=== PATIENT | male | born 1960 | race Caucasian/White ===

== ENCOUNTER 2024-05-13 11:09 | Emergency (ER) | payer OTHER, SELFPAY ==
[2024-05-13 11:12] VITALS: BP 130/78; PULSE 107; RESP 16; TEMP 36.8; O2SAT 97; BMI 34.5
--- NOTE | 2024-05-13 11:32 | ED_ITS ---
HPI - General Adult General Chief complaint: Unspecified Complaint, Adult Stated complaint: Chemo site tracking on arm Time Seen by Provider: 05/13/24 11:27 Source: patient Mode of arrival: ambulatory Limitations: no limitations History of Present Illness HPI narrative: 63-year-old male coming in today complaining of a rash on his arm. Patient had a recent chemotherapy treatment, it was his 6 and last 1. He had a chemo site on the anterior right arm. And he has noticed that in the last 2 days he has had redness at the site that is now streaking up his arm. He denies the area being tender or hot. He denies any drainage from the area. He denies any systemic symptoms. Related Data Previous Rx's ?Medication ?Instructions ?Recorded cephalexin 500 mg capsule 500 mg PO TID 7 days #21 caps 05/13/24 Allergies Allergy/AdvReac Type Severity Reaction Status Date / Time No Known Drug Allergies Allergy Verified 05/13/24 11:16 Review of Systems Status of ROS: Reports: 10 or more systems reviewed and unremarkable except as noted in History and below PFSH FOR[facility]LY [facility] Social History Smoking Status: Current every day smoker How often do you have a drink containing alcohol: never AUDIT-C Alcohol total score: 0 Non-prescribed substance use: denies use Exam Narrative: Exam Narrative: Overweight, well-developed patient in no acute distress. Alert and oriented. Answers questions appropriately. Mood and affect are appropriate. Thoughts are goal oriented and rational. No tangential or magical thinking noted. Patient speaks in full sentences without needing to catch his breath. HEENT: Normocephalic atraumatic. Extremities: Patient has an area of bruising at the site of the IV insertion on the anterior right forearm, he then has approximately a 3 inch streak going up the arm that reaches the flexor surface of the elbow. The area is not hot or indurated. Const: Vital Signs, click to edit/add: Vital Signs - 24 hr 05/13/24 11:12 Temperature 98.3 F Pulse Rate [Right Pulse Oximeter] 107 H Respiratory Rate 16 Blood Pressure [Le ft Upper Arm] 130/78 Pulse Oximetry 97 Oxygen Delivery Me thod Room Air Course Vital Signs Vital signs: Initial Vital Signs Temperature 98.3 F 05/13/24 11:12 Temperature Source Oral 05/13/24 11:12 Pulse Rate 107 H 05/13/24 11:12 Respiratory Rate 16 05/13/24 11:12 Blood Pressure 130/78 05/13/24 11:12 Blood Pressure Mean 95 05/13/24 11:12 Blood Pressure Position Sitting 05/13/24 11:12 Pulse Oximetry 97 05/13/24 11:12 Oxygen Delivery Method Room Air 05/13/24 11:12 Vital Signs Temperature 98.3 F 05/13/24 11:12 Pulse Rate 107 H 05/13/24 11:12 Respiratory Rate 16 05/13/24 11:12 Blood Pressure 130/78 05/13/24 11:12 Pulse Oximetry 97 05/13/24 11:12 Oxygen Delivery Method Room Air 05/13/24 11:12 Temperature 98.3 F 05/13/24 11:12 Pulse Rate 107 H 05/13/24 11:12 Respiratory Rate 16 05/13/24 11:12 Blood Pressure 130/78 05/13/24 11:12 Pulse Oximetry 97 05/13/24 11:12 Oxygen Delivery Method Room Air 05/13/24 11:12 Medical Decision Making MDM Narrative Medical decision making narrative: Rash on forearm. Differential diagnoses includes skin reaction to chemo, infection. Given patient's current [place] immunocompromise status we will go ahead and treat him with Keflex 3 times a day. Follow-up if it is getting worse, patient had no other questions. Discharge Plan Discharge Clinical Impression: Cellulitis Patient Disposition: Home, Self-Care Condition: Stable Additional Instructions: Take all antibiotics as prescribed. If redness continues despite 48 hours of antibiotic use, return to see your doctor right away or return to the ER. Prescriptions: New cephalexin 500 mg capsule 500 mg PO TID 7 Days Qty: 21 0RF Stand Alone Forms: [employer] Info Instructions
== END 2024-05-13 12:03 | disposition home or self-care (01) ==
LOC: ED 11:48
PROVIDERS: Emergency Provider Family Medicine; PCP Nurse Practitioner Adult Health
DX: L03.113 Cellulitis of right upper limb (principal)
CPT/HCPCS: 99283

== ENCOUNTER 2024-05-28 09:42 | Outpatient (CLI) | payer OTHER, SELFPAY | END 2024-05-28 09:43 | disposition home or self-care (01) | LOC: MRI 09:43 | PROVIDERS: PCP Nurse Practitioner Adult Health; Visit Provider Nurse Practitioner | DX: C61 Malignant neoplasm of prostate (principal) | CPT/HCPCS: 72195 ==